=== PATIENT | female | born 1980 | race African-American/Black ===

== ENCOUNTER → 2017-09-10 | Outpatient (CLI) | payer BC ==
[~2017-09-10] VITALS: Ht 168.9 cm; Wt 93.4 kg
[~2017-09-10] MED LIST: ABILIFY5 MG PO; Glucophage PO; LAMICTAL100 MG PO; LaMICtal PO; MIRENA1 EACH IY; THERAGRAN1 TABLET PO
== END | disposition home or self-care (01) ==
LOC: AMB 10:00
PROC: 0DJ08ZZ Inspection of Upper Intestinal Tract, Via Natural or Artificial Opening Endoscopic (ICD-10-PCS; principal; 2017-09-10)
DX: K21.9 Gastro-esophageal reflux disease without esophagitis (principal); Z98.84 Bariatric surgery status; K91.2 Postsurgical malabsorption, not elsewhere classified; G47.30 Sleep apnea, unspecified; E11.9 Type 2 diabetes mellitus without complications; E78.5 Hyperlipidemia, unspecified; Z88.2 Allergy status to sulfonamides